=== PATIENT | male | born 1985 | race Caucasian/White ===

== ENCOUNTER 2022-04-20 19:51 | Inpatient (IN) | payer MEDICAID ==
[~2022-04-20] VITALS: Ht 177.8 cm; Wt 65.4 kg
[2022-04-20] MEDS ORDERED: HALOPERIDOL LACTATE 5 MG/ML INJ VIAL IM ONE (22:30)
[2022-04-20] MEDS ORDERED: LORazepam 2MG/ML-1ML VIAL IM ONE (22:30)
[2022-04-20] MEDS ORDERED: diphenhdrAMINE HCL 50 MG/1 ML VL IM ONE (22:45)
[2022-04-21] MEDS ORDERED: CLINDAMYCIN HCL 150 MG CAP PO ONE (01:00)
[2022-04-21] MEDS ORDERED: SODIUM CHLORIDE 0.9% 1,000 ML IV ONE (03:00)
[2022-04-21] MEDS ORDERED: SODIUM CHLORIDE 0.9% 1,000 ML IV SCH (03:15)
[2022-04-21] MEDS ORDERED: DOCUSATE SOD 100 MG CAP PO PRN (03:15)
[2022-04-21] MEDS ORDERED: LORazepam 0.5 MG TAB PO PRN (03:15)
[2022-04-21] MEDS ORDERED: ALUM & MAG HYDROX-SIMETH LIQ(MAALOX) 30 ML PO PRN (03:15)
[2022-04-21] MEDS ORDERED: ACETAMINOPHEN 325 MG TAB PO PRN (03:15)
[2022-04-21] MEDS ORDERED: ONDANSETRON HCL 4 MG/2 ML VIAL IV PRN (03:15)
[2022-04-21] MEDS ORDERED: HYDROcodone-ACET 5/325MG TAB PO PRN (03:15)
[2022-04-21 04:05] LABS: Basophils # (auto) 0 10 ^3/uL (0-0.2); Basophils % (auto) 0.1 % (0.0-2.0); Eosinophils # (auto) 0.1 10 ^3/uL (0-0.8); Eosinophils % (auto) 0.7 % (0.0-7.0); Hematocrit 51.1 % (41.0-53.0); Hemoglobin 17.2 g/dL (13.5-17.5); Lymphocytes # (auto) 1.8 10 ^3/uL (0.4-5.4); Lymphocytes % (auto) 22.5 % (10.0-50.0); Mean Corpuscular Hemoglobin 31.7 pg (28.0-32.0); Mean Corpuscular Hgb Conc. 33.6 g/dL (32.0-36.0); Mean Corpuscular Volume 94.3 fL (80.0-100.0); Monocytes # (auto) 1.1 10 ^3/uL (0-1.3); Monocytes % (auto) 13.9 % (0.0-12.0); Neutrophils % (auto) 62.8 % (37.0-80.0); Nucleated Red Blood Cells % 0.1 %; Red Blood Cells 5.42 10^6/uL (4.5-5.90); Red Cell Distribution Width 13.6 % (11.8-14.3); White Blood Cell 7.9 10^3/uL (4.4-10.8)
[2022-04-21 12:00] VITALS: BP 115/65
== END 2022-04-21 16:07 | disposition left against medical advice (07) | DRG 384 ==
LOC: EDBD 19:51 → ER 19:56 → TELE 04-21 03:04
PROVIDERS: ADMIT Hospitalist; ATTEND Nurse Practitioner Acute Care
DX: S01.01XA Laceration without foreign body of scalp, initial encounter (principal); G92.9 Unspecified toxic encephalopathy; S06.899A Other specified intracranial injury with loss of consciousness of unspecified duration, initial encounter; F10.20 Alcohol dependence, uncomplicated; F84.0 Autistic disorder; Z53.29 Procedure and treatment not carried out because of patient's decision for other reasons; Z20.822 Contact with and (suspected) exposure to COVID-19; M79.7 Fibromyalgia; W18.39XA Other fall on same level, initial encounter; Y93.89 Activity, other specified; Y92.89 Other specified places as the place of occurrence of the external cause; Y99.8 Other external cause status
CPT/HCPCS: 36415; 70450; 70486; 72125; 80048; 85025; 87426; 96372; G0378